=== PATIENT | female | born 1980 ===

== ENCOUNTER 2020-05-28 04:54 | Inpatient (IN) | payer OTHER ==
--- NOTE | 2020-05-22 11:59 | History and Physical Report ---
History of Present Illness Date of examination: 05/22/20 History of present illness: 39 yo will be at 39w 4d on 05/28 when she will present for her RLTCS/BTL. H/O C/S x 2. Uncomplicated preg except for mild anemia. AMA. GBS pos. Past History Past Medical History: no pertinent history Past Surgical History: section (x 2) Social history: no significant social history - Obstetrical History : 4 Para: 3 Hx # Term Pregnancies: 3 Number of Living Children: 3 Medications and Allergies Active Meds: see EMR charting Review of Systems All systems: negative (except HPI) - Physical Exam Cardiovascular: Regular rate, No murmurs Lungs: Positive: Clear to auscultation, Normal air movement Abdomen: Positive: normal appearance, soft. Negative: tenderness Results All other labs normal. Assessment and Plan - Patient Problems (1) Previous section Status: Acute Plan to address problem: 39 yo will be at 39w 4d on 05/28 when she will present for her RLTCS/BTL. PT fully consented in the office including the approximately 09/999 risk of BTL failure. PT understands and agrees. PT seen and counseled with a insurance claim auditor. PT also agrees to use her old Pfannesteil incision vs her vertical one. (2) Sterilization Status: Acute Plan to address problem: BTL papers signed on 02/20/20
[2020-05-28] MEDS ORDERED: METOCLOPRAMIDE 10 MG/2 ML INJ IV ONE (05:00)
[2020-05-28] MEDS ORDERED: BICITRA ORAL LIQD 30ML PO ONE (05:00)
[2020-05-28] MEDS ORDERED: FAMOTIDINE 20 MG/2 ML INJ IV ONE (05:00)
[2020-05-28] MEDS ORDERED: OXYTOCIN DRIP 30 UNITS/500 ML BAG IV SCH ×2 (05:00→11:00)
[2020-05-28] MEDS ORDERED: ceFAZolin/Water 2 GM/20 ML 2 GM/20 ML SYRINGE IV NR (05:00)
[2020-05-28] MEDS: LACTATED RINGERS 1,000 ML IV SCH ×3 (05:30→17:06)
[2020-05-28 06:07] LABS: Basophils % (Auto) 0.3 % (0.0-1.8); Eosinophils # (Auto) 0.1 K/mm3 (0.0-0.4); Hemoglobin 12.5 gm/dl (10.1-14.3); Lymphocytes # (Auto) 1.9 K/mm3 (1.2-5.4); Lymphocytes % (Auto) 23.7 % (13.4-35.0); Mean Corpuscular HGB Conc 35 % (30-34); Mean Corpuscular Volume 94 fl (79-97); Monocytes # (Auto) 0.5 K/mm3 (0.0-0.8); Monocytes % (Auto) 6.3 % (0.0-7.3); Platelet Count 217 K/mm3 (140-440); Red Blood Count 3.83 M/mm3 (3.65-5.03); Red Cell Distribution Width 13.4 % (13.2-15.2)
--- NOTE | 2020-05-28 06:35 | Anesthesia Consultation ---
Anesthesia Consult and Med Hx Date of service: 05/28/20 - Airway Anesthetic Teeth Evaluation: Good ROM Head & Neck: Adequate Mental/Hyoid Distance: Adequate Mallampati Class: Class II Intubation Access Assessment: Probably Good - Pulmonary Exam CTA: Yes - Cardiac Exam Cardiac Exam: RRR - Pre-Operative Health Status ASA Pre-Surgery Classification: ASA3 Proposed Anesthetic Plan: Spinal - Pulmonary Hx Asthma: No - Cardiovascular System Hx Hypertension: No - Central Nervous System Hx Seizures: No Hx Psychiatric Problems: No - Endocrine Hx Renal Disease: No Hx Hypothyroidism: No Hx Hyperthyroidism: No - Hematic Hx Anemia: Yes (Was on iron pills in preg) Hx Sickle Cell Disease: No - Other Systems Hx Alcohol Use: No Hx Obesity: Yes
--- NOTE | 2020-05-28 06:35 | Anesthesia Day of Surgery ---
Anesthesia Day of Surgery - Day of Surgery Patient Examined: Yes Patient H&P Reviewed: Yes Patient is NPO: Yes
[2020-05-28] MEDS ORDERED: SODIUM CHLORIDE 0.9% IRR 1,500 ML BOTTLE IR ONE (08:18)
[2020-05-28] MEDS ORDERED: WATER FOR IRRIG STERILE 1,500 ML BOTTLE IR ONE (08:30)
[2020-05-28] MEDS ORDERED: ONDANSETRON 4 MG/2 ML INJ ONE (08:38)
[2020-05-28] MEDS ORDERED: ePHEDrine SULFATE 50 MG/1 ML INJ ONE (08:38)
[2020-05-28] MEDS ORDERED: KETOROLAC 30 MG/1 ML INJ ONE (08:38)
[2020-05-28] MEDS ORDERED: BUPIVACAINE/PF (0.5%) 5 MG/1 ML 30 ML VIAL INFILTRATI ONE (08:38)
[2020-05-28] MEDS ORDERED: PHENYLEPHRINE/NS 1,000 MCG/10 ML SYRINGE (OR USE) IV ONE (08:43)
[2020-05-28] MEDS ORDERED: HETASTARCH 6% 500 ML IV ONE (09:53)
[2020-05-28] MEDS ORDERED: NALOXONE 0.4 MG/1 ML INJ IV PRN (10:15)
[2020-05-28] MEDS ORDERED: LANOLIN/ZINC/DIMETHICONE (LANSINOH) 7 GM TP PRN (10:15)
[2020-05-28] MEDS ORDERED: WITCH HAZEL/ GLYCERIN PAD TP PRN (10:15)
[2020-05-28] MEDS ORDERED: SIMETHICONE 80 MG CHEW TAB PO PRN (10:17)
[2020-05-28] MEDS ORDERED: ONDANSETRON 4 MG/2 ML INJ IV PRN (10:17)
--- NOTE | 2020-05-28 10:48 | Procedure Note ---
OB Delivery Note - Delivery Date of Delivery: 05/28/20 Surgeon: KATINA HOUSTON Estimated blood loss: other (800 cc) - Section Preop diagnosis: repeat , desires sterilization Postop diagnosis: same section procedure: section, repeat low transverse, bilateral tubal ligation Disposition: PACU Complications: none Narrative: Indication: 39-year-old G4, P3 at 39 weeks and 4 days with a history of 2 prior C-sections is here for her repeat low-transverse as well as bilateral tubal ligation for sterilization. Findings: Normal uterus, tubes and ovaries except for some scarring in the left adnexal region particularly around the left tube. Clear fluid. No nuchal cord. Procedure: Patient taken to the operating room and prepped and draped in the usual fashion. Pfannenstiel skin incision was made and carried down to the underlying fascia. Fascia was incised and the incision was extended bilaterally. Rectus fascia dissected off the rectus muscle both superiorly and inferiorly. Peritoneum identified tented up and entered. Peritoneal incision e xtended superiorly and inferiorly with good visualization of the bladder. Bladder blade was placed. Uterine incision was made and the incision was extended bilaterally. The baby was delivered from in the typical vertex fashion. Baby bulb suctioned at the incision site and again after delivery. Cord was delayed clamped and cut and handed off to waiting team. The placenta was delivered spontaneously. The uterus was exteriorized and cleared of all clots and debris. Uterine incision closed with 0 Vicryl in a running locked fashion followed by a second imbricating layer of 0 Vicryl. Good hemostasis was noted after couple of additional [id number] stitches. Her urine was clear. Attention was turned to the tubal ligation. Both tubes were ligated using 0 chromic x2 on each side. This was done twice on the left side though because it was difficult to assess which tissue was the fallopian tube. Therefore 2 separate segments were obtained. I am confident that one of them is the fallopian tube. A few additional stitches were required due to mesenteric oozing but this was controlled with 2-0 Vicryl. Good hemostasis noted bilaterally. Surgicel placed over the areas of dissection on both adnexal areas. Good hemostasis noted afterwards, even after the uterus, tubes and ovaries were back in the abdominal cavity. The segments of tubes on each side were sent to pathology. Uterus tubes and ovaries were returned to the abdominal cavity. Gutters were cleared of all clots and debris and the pelvis was well irrigated. Good hemostasis noted. Interceed placed over the uterine incision and over the lower uterine segment in the midline. Attention was turned to the rectus fascia which was reapproximated with 0 Vicryl in a running fashion. Subcutaneous tissue was irrigated and reapproximated with 2-0 Vicryl in a running fashion. Skin was closed with 4-0 Vicryl in a subcuticular fashion followed by Dermabond. The procedure was concluded at this point and the patient tolerated the procedure well. All instrument and lap counts were correct. - A at 1 minute: 9 at 5 minutes: 9 Gender: Male
[2020-05-28] MEDS ORDERED: FLU VACC QUAD 2020-2021 (6 months +)/PF 60 0.5 ML SYRINGE IM ONE (12:00)
[2020-05-28] MEDS: KETOROLAC 30 MG/1 ML INJ IV PRN (18:23)
[2020-05-28] MEDS ORDERED: SENNOSIDES 8.6 MG TAB PO PRN (22:00)
[2020-05-28] MEDS ORDERED: MAGNESIUM HYDROXIDE (MOM) ORAL LIQD UDC PO PRN (22:00)
[2020-05-28] MEDS: oxyCODONE /ACETAMINOPHEN 5-325MG TAB PO PRN (22:10)
[2020-05-29] MEDS: KETOROLAC 30 MG/1 ML INJ IV PRN (02:05)
[2020-05-29] MEDS: oxyCODONE /ACETAMINOPHEN 5-325MG TAB PO PRN ×2 (05:18→13:02)
[2020-05-29] MEDS ORDERED: DIPHtheria,PERTUSSIS(ACELL),TETANUS VACCINE/PF 0.5 ML VIAL IM ONE (06:00)
[2020-05-29] MEDS: IBUPROFEN 800 MG TAB PO PRN ×2 (09:16→22:49)
[2020-05-29 09:58] LABS: Hematocrit 28.5 % (30.3-42.9); Hemoglobin 9.5 gm/dl (10.1-14.3)
--- NOTE | 2020-05-29 11:43 | Progress Note ---
Assessment and Plan A: Postop Day 1 Asymptomatic Anemia P: Follow routine postop orders. FeSO4 325mg PO BID Subjective - Subjective Date of service: 05/29/20 Principal diagnosis: s/p repeat Patient reports: appetite normal, voiding normally, pain well controlled, flatus, bowel movement, ambulating normally : doing well, bottle feeding Objective - Vital Signs Latest vital signs: Vital Signs Temp Pulse Resp BP BP Pulse Ox 05/29/20 07:40 98.2 F 98 H 18 104/57 97 05/29/20 04:30 98.2 F 77 20 118/56 05/29/20 00:16 98.5 F 82 20 107/57 97 05/28/20 20:16 98.5 F 100 H 20 98/59 95 05/28/20 18:23 20 05/28/20 15:55 98 F 87 20 102/57 05/28/20 12:56 97.7 F 69 20 106/59 96 Intake and Output 05/28/20 05/29/20 05/29/20 22:59 06:59 14:59 Intake Total 560 240 Output Total 1200 400 Balance -640 240 -400 Intake: Oral 560 240 Output: Urine 1200 400 Indwelling Catheter 1200 Void 400 Other: Total, Intake Amount 240 240 Total, Output Amount 300 400 # Voids Void 1 - Exam Breasts: Present: normal Cardiovascular: Present: Regular rate, Normal S1, Normal S2 Lungs: Present: Clear to auscultation, Normal air movement Abdomen: Present: normal appearance, soft, normal bowel sounds Uterus: Present: normal, firm, fundal height below umbilicus Extremities: Present: normal Incision: Present: dry, dressed - Labs Labs: Abnormal lab results 05/29/20 Range/Units 09:30 Hgb 9.5 L D (10.1-14.3) gm/dl Hct 28.5 L D (30.3-42.9) %
--- NOTE | 2020-05-29 12:25 | Consultation ---
History of Present Illness - Reason for Consult Consult date: 05/29/20 Reason for consult: depression score was high - History of Present Psychiatric Illness Teri Garcia is a 39y/o female who was admitted for child . During my interview with the patient this morning, she is a/o x 3. She is calm and cooperative. She is pleasant. Her spouse is at bedside. She gives me permission to speak to her in his presence. She says she just had "a baby boy." The patient verbalizes being "happy." I asked the patient if she knew why psychiatry was consulted, she said "no." The patient denies being depressed, but states that she "had been crying over everything in the last few days." She says, "but I don't really know why, maybe emotional about the baby." She says that's the "first time that has happened." The patient denies wanting to hurt herself or her baby. She states, "I don't want to kill myself or my baby." When asked about hallucinations, the patient states "last night when I was sleeping, I closed my eyes and saw spiders." She says, "maybe it was the anesthesia or medicine. I never seen that before." She denies seeing anything at present. The patient denies any illicit drug use, alcohol or nicotine. She denies having a psychiatric history or being on any psych medications. PAST PSYCHIATRIC HISTORY: Diagnoses: Denies Suicide attempts or Self-harm behavior: Denies Prior psychiatric hospitalizations: Denies Substance Abuse history: Denies Previous psychiatric medications tried: Denies Outpatient treatment: Denies PAST MEDICAL HISTORY: No significant past medical history Family Psychiatric History: None reported or documented SOCIAL HISTORY Marital Status: Living Arrangements: "with family" Employment Status: unemployed Access to guns/weapons: Denies Education: high school grad History of Abuse: None reported Legal History: Denies REVIEW OF SYSTEMS Constitutional: Negative for weight loss ENT: Negative for stridor Respiratory: Negative for cough or hemoptysis All other systems reviewed and are negative MENTAL STATUS EXAMINATION General Appearance and Behavior: Age appropriate, calm and cooperative, good eye contact. Pleasant. Cooperation: cooperative Psychomotor Behavior: normal Mood: "happy" Affect and affective range: Congruent with stated mood Thought Process: goal directed Thought Content: Denies Speech: normal tone and pace Suicidal Ideation: Denies SI Homicidal Ideation: Denies HIl Impulse Control: Normal Hallucinations: Denies Delusions: None elicited Insight and Judgment: Normal Memory/Cognition: Normal Attention: Normal Orientation: Alert, oriented Assessment and Plan Mental Health Evaluation TREATMENT PLAN No meds at this time Sitter: Defer to primary Medical: Per primary Disposition: Do not recommend acute inpatient psychiatric treatment at this time. The client services associate is to give the patient outpatient resources for therapy The patient to follow up in 7 to 14 days with psychiatry upon discharge Will sign off. Thank you for this consult. Medications and Allergies Allergies Allergy/AdvReac Type Severity Reaction Status Date / Time No Known Allergies Allergy Verified 05/27/20 22:43 Home Medications Medication Instructions Recorded Confirmed Last Taken Type Ferrous Sulfate [Feosol] 325 mg PO QDAY 05/28/20 05/28/20 05/27/20 History Ibuprofen [Motrin 800 MG tab] 800 mg PO Q6H PRN #30 tablet 05/28/20 Unknown Rx oxyCODONE /ACETAMINOPHEN [Percocet 1 tab PO Q6H PRN #30 tablet 05/28/20 Unknown Rx 5/325 mg] Active Meds: Active Medications Ferrous Sulfate (Feosol) 325 mg PO BID JESUS Oxytocin/Sodium Chloride (Pitocin/Ns 30 Unit/500ml) 30 units in 500 mls @ 40 mls/hr IV TITR JESUS; Protocol Ibuprofen (Ibuprofen) 800 mg PO Q6H PRN PRN Reason: Pain, Mild (1-3) Last Admin: 05/29/20 09:16 Dose: 800 mg Documented by: Magnesium Hydroxide (Milk Of Magnesia) 30 ml PO QHS PRN PRN Reason: Constip Unrelieved By Senna Multi-Ingredient Ointment (Lansinoh) 1 applic TP PRN PRN PRN Reason: dryness/cracking Naloxone HCl (Naloxone) 0.1 mg IV Q2MIN PRN PRN Reason: Res Rate </= 8 or 02 SAT < 92% Ondansetron HCl (Zofran) 4 mg IV Q8H PRN PRN Reason: Nausea And Vomiting Oxycodone/Acetaminophen (Percocet 5/325) 2 tab PO Q6H PRN PRN Reason: Pain, Moderate (4-6) Senna (Senokot) 17.2 mg PO QHS PRN PRN Reason: Constipation Simethicone (Mylicon) 80 mg PO Q6H PRN PRN Reason: Gas pain Witch Patricia/Glycerin (Tucks Pad) 1 each TP PRN PRN PRN Reason: Hemorrhoids/cleansing/soothing Mental Status Exam - Vital signs Last Vital Signs Temp 98.2 F 05/29/20 07:40 Pulse 98 H 05/29/20 07:40 Resp 18 05/29/20 07:40 BP 104/57 05/29/20 07:40 Pulse Ox 97 05/29/20 07:40 Results Result Diagrams: 05/29/20 09:30 Abnormal lab results 05/29/20 Range/Units 09:30 Hgb 9.5 L D (10.1-14.3) gm/dl Hct 28.5 L D (30.3-42.9) % All other labs normal.
[2020-05-29] MEDS: FERROUS SULFATE 325 MG TAB PO SCH ×2 (13:02→22:49)
[2020-05-30] MEDS: oxyCODONE /ACETAMINOPHEN 5-325MG TAB PO PRN ×2 (03:40→13:10)
--- NOTE | 2020-05-30 10:32 | Progress Note ---
Assessment and Plan A: s/p Repeat LTCS P: Continue monitoring D/C home if stable Subjective - Subjective Date of service: 05/30/20 Principal diagnosis: s/p repeat Patient reports: appetite normal, voiding normally, pain well controlled, ambulating normally : doing well, bottle feeding Objective - Vital Signs Latest vital signs: Vital Signs Temp Pulse Resp BP BP Pulse Ox 05/30/20 07:50 98.0 F 89 18 107/67 97 05/30/20 00:30 98.8 F 78 18 115/68 05/29/20 21:23 98.0 F 105 H 18 109/59 97 05/29/20 17:06 98.0 F 84 18 96/45 96 Intake and Output 05/29/20 05/30/20 05/30/20 22:59 06:59 14:59 Intake Total 300 240 Balance 300 240 Intake: Oral 240 Intake, Free Water 300 Other: Total, Intake Amount 240 # Bowel Movements 1 - Exam Breasts: Present: normal Abdomen: Present: normal appearance, soft, normal bowel sounds Vulva: both: normal Uterus: Present: normal, firm, fundal height below umbilicus Extremities: Present: normal Incision: Present: normal, dry, intact
--- NOTE | 2020-05-30 10:37 | Discharge Summary ---
Providers - Providers Date of Admission: 05/28/20 04:54 Date of discharge: 05/30/20 Attending physician: ILDEFONSO ODONNELL JR, MD 05/29/20 09:07 Consult to Mental Health [CONS] Routine Reason For Exam: at risk for depression Primary care physician: ILDEFONSO ODONNELL JR, MD Hospitalization Reason for admission: section Delivery: Procedure: repeat low transverse Episiotomy: none Laceration: none Incision: normal, dry, intact Other procedures: tubal ligation complications: none Discharge diagnosis: IUP at term delivered Orange baby: male Hospital course: Pt was admitted for a repeat c/s with BTL. She had an uncomplicated delivery and pp stay. See H&P, delivery summary, and pp notes. Condition at discharge: Stable Disposition: TO HOME OR SELFCARE Plan - Discharge Medications Prescriptions: Ibuprofen [Motrin 800 MG tab] 800 mg PO Q6H PRN #30 tablet PRN Reason: Pain, Mild (1-3) oxyCODONE /ACETAMINOPHEN [Percocet 5/325 mg] 1 tab PO Q6H PRN #30 tablet PRN Reason: Pain, Moderate (4-6) - Provider Discharge Summary Activity: no sex for 6 weeks, no heavy lifting 4 weeks, no strenuous exercise Diet: routine Instructions: routine Additional instructions: [] Smoking cessation referral if applicable(refer to patient education folder for contact #) [] Refer to [facility]'s [facility] Booklet Call your doctor immediately for: * Fever > 100.5 * Heavy vaginal bleeding ( >1 pad per hour) * Severe persistent headache * Shortness of breath * Reddened, hot, painful area to leg or breast * Drainage or odor from incision. * Keep incision clean and dry at all times and follow doctor's instructions regarding bathing/showering - Follow up plan Follow up: KATINA HOUSTON MD [Staff Physician] - 14 Days Forms: [facility] Discharge Summary
[2020-05-30] MEDS: FERROUS SULFATE 325 MG TAB PO SCH (11:03)
[2020-05-30] MEDS: IBUPROFEN 800 MG TAB PO PRN (11:03)
[2020-05-30 16:03] VITALS: BP 110/75
== END 2020-05-30 16:10 | disposition home or self-care (01) | DRG 785 ==
LOC: APU 04:54 → OB 12:10
PROVIDERS: ADMIT Obstetrics & Gynecology; ATTEND Obstetrics & Gynecology
PROC: 0UB70ZZ Excision of Bilateral Fallopian Tubes, Open Approach (ICD-10-PCS; principal; 2020-05-28)
PROC: 10D00Z1 Extraction of Products of Conception, Low, Open Approach (ICD-10-PCS; 2020-05-28)
PROC: 3E0234Z Introduction of Serum, Toxoid and Vaccine into Muscle, Percutaneous Approach (ICD-10-PCS; 2020-05-29)
DX: O99.214 Obesity complicating childbirth (principal); O34.211 Maternal care for low transverse scar from previous cesarean delivery; Z20.828 Contact with and (suspected) exposure to other viral communicable diseases; O99.02 Anemia complicating childbirth; E66.9 Obesity, unspecified; Z3A.39 39 weeks gestation of pregnancy; Z37.0 Single live birth; Z79.899 Other long term (current) drug therapy; Z30.2 Encounter for sterilization
CPT/HCPCS: 36415; 85014; 85018; 85025; 86592; 86850; 86900; 86901; 88305; 90715; G0378; J1885; J2370; J2405; J2765; J3490; J7120; U0003